=== PATIENT | female | born 1980 | race Two or more races ===

== ENCOUNTER 2019-03-17 09:33 | Emergency (ER) | payer OTHER, SELFPAY ==
[~2019-03-17] VITALS: Ht 165.1 cm; Wt 90.7 kg
[2019-03-17] MEDS ORDERED: fentaNYL PF VIAL 100 MCG/2 ML VIAL IV ONE ×2 (10:00→10:45)
[2019-03-17] MEDS ORDERED: IV NORMAL SALINE 1000ML BAG 1,000 ML IV ONE (10:00)
[2019-03-17] MEDS ORDERED: ONDANSETRON PF 4 MG/2 ML VIAL. IM ONE (10:00)
[2019-03-17] MEDS ORDERED: IOHEXOL 300 MG/ML 100ML VIAL. IV ONE (10:15)
[2019-03-17] MEDS ORDERED: ONDANSETRON PF 4 MG/2 ML VIAL. IV ONE (10:15)
--- NOTE | 2019-03-17 10:18 | PHYS DOC ---
Past Medical History Past Medical History: No Pertinent History, Asthma, Other Additional Past Medical Histor: back pain, seasonal allergies Past Surgical History: Alcohol Use: None Drug Use: None Adult General Chief Complaint Chief Complaint: ABSCESS HPI HPI 39-year-old female presents to ER for complaints of abscess on her left inner buttock which is been gradually worsening over the past few days. Patient states this morning she's been having some dysuria and when she wiped the abscess started draining. Patient states she has had pain with bowel movements over the past couple of days denies any bloody stools. She reports she has felt feverish- but doesn't think she had temp. LMP 2 wks ago. Review of Systems Review of Systems Constitutional: Reports feels feverish intermittently Eyes: Denies change in visual acuity, redness, or eye pain [] HENT: Denies nasal congestion or sore throat [] Respiratory: Denies cough or shortness of breath [] Cardiovascular: No additional information not addressed in HPI [] GI: Denies abdominal pain, nausea, vomiting, bloody stools or diarrhea [] : Denies hematuria. Reports dysuria. Denies vaginal sxs. Reports abscess lt inner buttock- pain into rectum Musculoskeletal: Denies back pain or joint pain [] Integument: Denies rash or skin lesions [] Neurologic: Denies headache, focal weakness or sensory changes [] Endocrine: Denies polyuria or polydipsia [] All other systems were reviewed and found to be within normal limits, except as documented in this note. Current Medications Current Medications Current Medications Medications (Trade) Dose Ordered Sig/Sherry Start Time Stop Time Status Last Admin Dose Admin Fentanyl Citrate (Fentanyl 2ml Vial) 50 mcg 1X ONCE 03/17/19 10:45 03/17/19 10:46 DC 03/17/19 10:47 50 MCG Info (CONTRAST GIVEN -- Rx MONITORING) 1 each PRN DAILY PRN 03/17/19 10:30 03/17/19 15:00 DC Iohexol (Omnipaque 300 Mg/ml) 75 ml 1X ONCE 03/17/19 10:15 03/17/19 10:22 DC 03/17/19 10:15 75 ML Lidocaine HCl (Xylocaine-Mpf 1% 2ml Vial) 4 ml 1X ONCE 03/17/19 12:00 03/17/19 12:01 DC 03/17/19 13:02 4 ML Ondansetron HCl (Zofran) 4 mg 1X ONCE 03/17/19 10:15 03/17/19 10:16 DC 03/17/19 10:00 4 MG Sodium Chloride 1,000 ml @ 1,000 mls/hr 1X ONCE 03/17/19 10:00 03/17/19 10:59 DC 03/17/19 10:03 1,000 MLS/HR Allergies Allergies Allergies Coded Allergies Type Severity Reaction Last Updated Verified poison ander extract Allergy Severe rash 03/17/19 No Physical Exam Physical Exam Constitutional: Well developed, well nourished, no acute distress, non-toxic appearance. [] HENT: Normocephalic, atraumatic, oropharynx moist, nose normal. [] Eyes: Pupils equal, conjunctiva normal, no discharge. [] Neck: Normal range of motion, no tenderness, supple, no stridor. [] Cardiovascular:Heart rate regular rhythm, no murmur [] Lungs & Thorax: Bilateral breath sounds clear to auscultation- resp. equal/nonlabored Abdomen: Bowel sounds normal, soft, no tenderness Skin: Warm, dry, no erythema, no rash. [] Back: No tenderness, no CVA tenderness. [] Extremities: No tenderness, no cyanosis, no clubbing, ROM intact, no edema. [] Neurologic: Alert and oriented X 3, normal motor function, normal sensory function, no focal deficits noted. [] Psychologic: Affect normal, judgement normal, mood normal. 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 Patient has approximate 2 x 2 abscess on left inner buttock with erythema and small amount of purulent drainage. Abscess has induration which extends to rectum. No external hemorrhoids no labial swelling or tenderness. Current Patient Data Vital Signs Vital Signs Date Time Temp Pulse Resp B/P (MAP) Pulse Ox O2 Delivery O2 Flow Rate FiO2 03/17/19 13:10 70 16 126/81 (96) 97 03/17/19 09:41 97.6 97.6 Lab Values Laboratory Tests Test 03/17/19 09:56 03/17/19 11:55 White Blood Count 13.8 x10^3/uL (4.0-11.0) H Red Blood Count 4.93 x10^6/uL (3.50-5.40) Hemoglobin 14.3 g/dL (12.0-15.5) Hematocrit 42.2 % (36.0-47.0) Mean Corpuscular Volume 86 fL (79-100) Mean Corpuscular Hemoglobin 29 pg (25-35) Mean Corpuscular Hemoglobin Concent 34 g/dL (31-37) Red Cell Distribution Width 13.3 % (11.5-14.5) Platelet Count 209 x10^3/uL (140-400) Neutrophils (%) (Auto) 75 % (31-73) H Lymphocytes (%) (Auto) 18 % (24-48) L Monocytes (%) (Auto) 6 % (0-9) Eosinophils (%) (Auto) 1 % (0-3) Basophils (%) (Auto) 0 % (0-3) Neutrophils # (Auto) 10.4 x10^3uL (1.8-7.7) H Lymphocytes # (Auto) 2.5 x10^3/uL (1.0-4.8) Monocytes # (Auto) 0.9 x10^3/uL (0.0-1.1) Eosinophils # (Auto) 0.1 x10^3/uL (0.0-0.7) Basophils # (Auto) 0.1 x10^3/uL (0.0-0.2) Platelet Estimate Adequate (ADEQUATE) Large Platelets Few Maternal Serum HCG Beta Subunit 1 mIU/mL (0-5) Sodium Level 138 mmol/L (136-145) Potassium Level 4.1 mmol/L (3.5-5.1) Chloride Level 104 mmol/L (98-107) Carbon Dioxide Level 25 mmol/L (21-32) Anion Gap 9 (6-14) Blood Urea Nitrogen 15 mg/dL (7-20) Creatinine 0.8 mg/dL (0.6-1.0) Estimated GFR (Cockcroft-Gault) 80.3 BUN/Creatinine Ratio 19 (6-20) Glucose Level 97 mg/dL (70-99) Lactic Acid Level 1.6 mmol/L (0.4-2.0) Calcium Level 9.0 mg/dL (8.5-10.1) Total Bilirubin 0.5 mg/dL (0.2-1.0) Aspartate Amino Transferase (AST) 14 U/L (15-37) L Alanine Aminotransferase (ALT) 23 U/L (14-59) Alkaline Phosphatase 92 U/L (46-116) Total Protein 7.3 g/dL (6.4-8.2) Albumin 3.5 g/dL (3.4-5.0) Albumin/Globulin Ratio 0.9 (1.0-1.7) L Urine Collection Type Unknown Urine Color Yellow Urine Clarity Clear Urine pH 5.0 Urine Specific [place] >=1.030 Urine Protein Negative mg/dL (NEG-TRACE) Urine Glucose (UA) Negative mg/dL (NEG) Urine Ketones (Stick) Negative mg/dL (NEG) Urine Blood Small (NEG) Urine Nitrite Negative (NEG) Urine Bilirubin Negative (NEG) Urine Urobilinogen Dipstick 0.2 mg/dL (0.2 mg/dL) Urine Leukocyte Esterase Negative (NEG) Urine RBC 1-2 /HPF (0-2) Urine WBC 1-4 /HPF (0-4) Urine Squamous Epithelial Cells Few /LPF Urine Bacteria Few /HPF (0-FEW) Urine Mucus Slight /LPF Laboratory Tests 03/17/19 09:56 Laboratory Tests 03/17/19 09:56 Microbiology 03/17/19 Blood Culture - Preliminary, Resulted NO GROWTH AFTER 1 DAY EKG EKG [] Radiology/Procedures Radiology/Procedures PROCEDURE: CT PELVIS W/CONTRAST EXAM: Pelvis CT with intravenous contrast. HISTORY: Perirectal abscess. TECHNIQUE: Computed tomographic images of the pelvis were obtained following the administration of 75 cc Omnipaque 300 intravenous contrast. Multiplanar reformatting was performed. *One or more of the following individualized dose reduction techniques were utilized for this examination: 1. Automated exposure control. 2. Adjustment of the mA and/or kV according to patient size. 3. Use of iterative reconstruction technique. COMPARISON: None. FINDINGS: There is a 3.5 cm region of increased soft tissue density within the medial left buttock subcutaneous fat, likely due to local cellulitis. No drainable fluid collection is seen. No soft tissue gas is seen. The visualized loops of bowel are unremarkable. The bladder is unremarkable. There are prominent left adnexal vessels and there is asymmetric enhancement of the left gonadal vein, not clearly within limits to suggest vascular congestion. There are prominent bilateral ovarian follicles, within physiologic limits. There is a prominent left inguinal lymph node measuring 2.2 cm in long axis. This may be physiologic or reactive in etiology. There is no suspicious osseous lesion. IMPRESSION: 1. 3.5 cm region of increased soft tissue density within the medial left buttock subcutaneous fat, likely due to cellulitis. No drainable fluid collection/abscess is seen. 2. Prominent left inguinal lymph node, likely physiologic or reactive in etiology. Electronically signed by: Geri Malik MD (03/17/2019 11:34 AM) [facility] DICTATED and SIGNED BY: GERI MALIK MD DATE: 03/17/19 1134 Abscess Incision and Drainage with irrigation by me: 1250 Location: Lt inner buttock Anesthesia: Local 1% Lidocaine 1.5 mL Technique: #11 blade Irrigated. Disrupted loculations w/ instrumentation Packin/2" iodoform Complications: Neurovascularly intact post procedure 48 hour wound check. Scar minimization instructions given. Course & Med Decision Making Course & Med Decision Making Pertinent Labs and Imaging studies reviewed. (See chart for details) 1140: Discussed test results with patient with WBCs at 13.8 no bands on differential and lactic acid normal limits at 1.6. Discussed CT results with "soft tissue density within the medial left buttock subcutaneous fat, likely due to cellulitis". Discussed I&D to further drain left inner buttock abscess and patient is agreeable with this plan. She reports she has had some relief in pain with IV fentanyl. Patient remains nontoxic in appearance and in no visible distress. Patient is ambulatory to bathroom for UA specimen. UA neg. for infection. Pt had I&D done with moderate amt of purulent drainage from incision site. Packing was placed. Pt tolerated procedure well with reports of improved pain. Wound care education provided and advised on need for wound recheck and packing removal in 24 hours. Will provide community clinic resource sheet for f/u and if unable to get into clinic pt to return to ER. Education provided on s&s to return to ER for and d/c instructions were discussed. Will provide Rx for Bactrim and Avon. Pt advised on use of ibuprofen and warm compresses to affected area. Pt was in no distress at time of d/c discussion. Dragon Disclaimer Dragon Disclaimer This electronic medical record was generated, in whole or in part, using a voice recognition dictation system. Departure Departure Impression: Primary Impression: Abscess Disposition: HOME, SELF-CARE Condition: STABLE Referrals: TETE OBRIEN MD (PCP) Patient Instructions: Abscess, Incision and Drainage, Care After Additional Instructions: Ibuprofen and/or tylenol as directed on container as directed on container. If taking prescribed [place] avoid taking additional tylenol. Drink plenty of fluids. Warm compress to affected area every 3-4 hours for 20-30 minutes at a time. Your packing will need to be removed in 24 hours- you can return to Emergency Department if unable to get in for an appointment at a local clinic. Scripts Hydrocodone/Apap 5-325 (NORCO 5-325 TABLET) 1 Each Tablet 1 TAB PO PRN Q6HRS PRN for PAIN, #10 TAB 0 Refills No driving or drinking alcohol while taking Prov: RAFFI CORADO APRN 03/17/19 Sulfamethoxazole/Trimethoprim (BACTRIM DS TABLET) 1 Each Tablet 1 TAB PO BID, #14 TAB 0 Refills Prov: RAFFI CORADO APRN 03/17/19 RAFFI CORADO APRN March 17, 2019 10:18
[2019-03-17 10:20] LABS: BASO # 0.1 x10^3/uL (0.0-0.2); BASO % 0 % (0-3); EOS # 0.1 x10^3/uL (0.0-0.7); EOS % 1 % (0-3); HEMATOCRIT 42.2 % (36.0-47.0); HEMOGLOBIN 14.3 g/dL (12.0-15.5); LYMPH # 2.5 x10^3/uL (1.0-4.8); LYMPH % 18 % (24-48); MEAN CORPUSCULAR HEMOGLOBIN 29 pg (25-35); MEAN CORPUSCULAR HGB CONC 34 g/dL (31-37); MEAN CORPUSCULAR VOLUME 86 fL (79-100); MONO # 0.9 x10^3/uL (0.0-1.1); MONO % 6 % (0-9); NEUT # 10.4 x10^3uL (1.8-7.7); NEUT % 75 % (31-73); PLATELET COUNT 209 x10^3/uL (140-400); RED BLOOD COUNT 4.93 x10^6/uL (3.50-5.40); RED CELL DISTRIBUTION WIDTH 13.3 % (11.5-14.5); WHITE BLOOD COUNT 13.8 x10^3/uL (4.0-11.0)
[2019-03-17 10:28] LABS: CREATININE 0.8 mg/dL (0.6-1.0); GFR 80.3; POTASSIUM 4.1 mmol/L (3.5-5.1)
[2019-03-17] MEDS ORDERED: CONTRAST GIVEN. MC PRN (10:30)
[2019-03-17 10:34] LABS: ALBUMIN 3.5 g/dL (3.4-5.0); ALBUMIN/GLOBULIN RATIO 0.9 (1.0-1.7); TOTAL BILIRUBIN 0.5 mg/dL (0.2-1.0); TOTAL PROTEIN 7.3 g/dL (6.4-8.2)
--- NOTE | 2019-03-17 11:37 | RAD ---
EXAM: Pelvis CT with intravenous contrast. HISTORY: Perirectal abscess. TECHNIQUE: Computed tomographic images of the pelvis were obtained following the administration of 75 cc Omnipaque 300 intravenous contrast. Multiplanar reformatting was performed. *One or more of the following individualized dose reduction techniques were utilized for this examination: 1. Automated exposure control. 2. Adjustment of the mA and/or kV according to patient size. 3. Use of iterative reconstruction technique. COMPARISON: None. FINDINGS: There is a 3.5 cm region of increased soft tissue density within the medial left buttock subcutaneous fat, likely due to local cellulitis. No drainable fluid collection is seen. No soft tissue gas is seen. The visualized loops of bowel are unremarkable. The bladder is unremarkable. There are prominent left adnexal vessels and there is asymmetric enhancement of the left gonadal vein, not clearly within limits to suggest vascular congestion. There are prominent bilateral ovarian follicles, within physiologic limits. There is a prominent left inguinal lymph node measuring 2.2 cm in long axis. This may be physiologic or reactive in etiology. There is no suspicious osseous lesion. IMPRESSION: 1. 3.5 cm region of increased soft tissue density within the medial left buttock subcutaneous fat, likely due to cellulitis. No drainable fluid collection/abscess is seen. 2. Prominent left inguinal lymph node, likely physiologic or reactive in etiology. Electronically signed by: Geri Malik MD (03/17/2019 11:34 AM) [facility]
[2019-03-17 11:45] LABS: PLT ESTIMATE ADEQUATE (ADEQUATE)
[2019-03-17] MEDS ORDERED: LIDOCAINE 1% PF 2 ML VIAL. INJ ONE (12:00)
[2019-03-17 12:09] LABS: BILIRUBIN,URINE NEGATIVE (NEG); CLARITY,URINE CLEAR; COLOR,URINE YELLOW; NITRITE,URINE NEGATIVE (NEG); PROTEIN,URINE NEGATIVE (NEG-TRACE); UROBILINOGEN,URINE 0.2 mg/dL (0.2 mg/dL)
[2019-03-17 12:21] LABS: BACTERIA,URINE FEW /HPF (0-FEW); SQUAMOUS EPITHELIAL CELL,UR FEW /LPF
[2019-03-17] MEDS ORDERED: SULF1TAB24 PO (13:08)
[2019-03-17] MEDS ORDERED: HYDR-3164 PO (13:08)
[2019-03-17 13:10] VITALS: BP 126/81
== END 2019-03-17 13:11 | disposition home or self-care (01) ==
LOC: ER 09:33
DX: L02.31 Cutaneous abscess of buttock (principal); R30.0 Dysuria; J45.909 Unspecified asthma, uncomplicated; Z98.890 Other specified postprocedural states; Z91.09 Other allergy status, other than to drugs and biological substances
CPT/HCPCS: 10060; 36415; 72193; 80053; 81001; 83605; 84702; 85025; 87040; 87071; 87075; 96374; 96375; 96376; 99285; J2405; J3010; J7030; Q9967; 87186

== ENCOUNTER → 2021-08-30 | Outpatient (CLI) | payer OTHER ==
[~2021-08-30] MED LIST: HYDR-3164 PO; SULF1TAB24 PO
--- NOTE | 2021-08-30 08:49 | KCIC ---
Bilateral digital screening mammograms: Reason for examination: Routine baseline screening. Interpretation was made with the benefit of CAD. The skin and nipples show no abnormalities. No abnormal axillary lymph nodes are seen. The breast par enchyma shows scattered fibroglandular density. (Breast density: Category B.) There are no dominant m asses, suspicious calcifications or architectural distortions. Impression: No evidence of malignancy. Recommend routine screening. BI-RADS Category 1: Negative. "Our facility is accredited by the [employer] Mammography Program." This patient's information has been entered into a reminder system for the patient to be notified wit h the results of her examination and a target date for the next mammogram. Electronically signed by: Cheyanne Keen MD (08/30/2021 8:47 AM) [id number]
== END ==
LOC: KCIC MAMMO 08:01
PROVIDERS: ATTEND Internal Medicine
DX: Z12.31 Encounter for screening mammogram for malignant neoplasm of breast (principal)
CPT/HCPCS: 77067